=== PATIENT | female | born 1970 | race Caucasian/White ===

== ENCOUNTER → 2019-04-16 | Outpatient (CLI) | payer BC ==
--- NOTE | 2019-04-16 16:38 | RAD ---
DATE: 04/16/2019. EXAM: MAMMO SAIDA DIAG BILAT, BREAST BILATERAL. HISTORY: Palpable focus on the right. COMPARISON: 03/16/2018. This study was interpreted with the benefit of Computerized Aided Detection (CAD). FINDINGS: Breast Density: DENSE The breast parenchyma is dense, which could reduce the sensitivity of mammography. Breast parenchyma level density D.. A skin marker is placed superolaterally on the right. There is no clear underlying mammographic finding. On today's sonography, there are small complicated cysts or fibroadenomas at the site of concern. These measure 5 mm or less and appear benign. There is no suspicious correlate for a palpable focus. On the left, there is a partially obscured nodule medially on the left, best seen on the tomographic images. It appears to be in inferior on the MLO projection. On today's sonography, this may correspond with an anechoic or very hypoechoic nodule at the 8:00 position 4 cm from the nipple measuring 6 x 5 x 3 mm. This may be mild, acute cyst or fibroadenoma. Another similar nodule measures 4 x 2 mm at the 9:00 position 2 cm from the nipple. A few additional smaller nodules are seen elsewhere. A suggested lesion at the 10:00 position does not persist on additional imaging and is not a fracture. BI-RADS CATEGORY: 3 PROBABLY BENIGN FINDING(S)-SHORT INTERVAL FOLLOW-UP SUGGESTED. RECOMMENDED FOLLOW-UP: 6M 6 MONTH FOLLOW-UP. 1. Recommend ongoing clinical follow-up of palpable foci. 2. Recommend 6 month follow-up left mammography of an obscured nodule medially which may correspond with a complicated cyst sonographically. 3. 6 month follow-up bilateral sonography to confirm stability of a few subcentimeter hypoechoic foci that likely represent benign complicated cysts or fibroadenomas. PQRS compliance statement: Patient information was entered into a reminder system with a target due date 10/16/2019 for the next mammogram. Mammography is a sensitive method for finding small breast cancers, but it does not detect them all and is not a substitute for careful clinical examination. A negative mammogram does not negate a clinically suspicious finding and should not result in delay in biopsying a clinically suspicious abnormality. "Our facility is accredited by the [employer] Mammography [employer]."
== END | disposition home or self-care (01) ==
LOC: MAMMO 13:50
PROVIDERS: ATTEND Registered Nurse
DX: N60.21 Fibroadenosis of right breast (principal); N60.22 Fibroadenosis of left breast; N63.24 Unspecified lump in the left breast, lower inner quadrant
CPT/HCPCS: 76641; 77066; G0279; 77062

== ENCOUNTER → 2019-11-06 | Outpatient (CLI) | payer BC ==
--- NOTE | 2019-11-06 15:38 | RAD ---
EXAM: 1. Unilateral digital diagnostic mammography, left. 2. Bilateral breast ultrasound. HISTORY: Six-month follow-up bilateral breast nodules. TECHNIQUE: Unilateral left full field digital images were obtained in CC and MLO projections. Computer-aided detection was applied. Sonography of both breasts was performed at sites of prior concern. COMPARISON: 04/16/2019. COMPOSITION: C. The breasts are heterogeneously dense, which may obscure small masses. FINDINGS: The previously noted site of concern medially is no longer clearly identified. An obscured nodule inferiorly on the tomographic MLO images appears more prominent but is circumscribed and likely corresponds with one of multiple small cysts sonographically. There are no suspicious masses, microcalcifications or architectural distortion. The parenchymal pattern is stable. On today's sonography, on the right, small complicated cysts appear stable and benign. These are seen at the 9:00 position 6 cm from the nipple, at 10:00 position 4 cm from the nipple, and at the 11:00 position 5 cm from the nipple. They measure 3 mm or less. Some of the previously noted cysts have resolved in the interval. On the left at the 9:00 position 2 cm from the nipple, a complicated cyst measures 4 x 3 mm and is slightly increased in size. There is no suspicious solid component. Another at the 9:00 position 4 cm from the nipple measures 4 x 3 mm and has increased but appears benign. This is associated with some tenderness on scanning. There is no clear surrounding inflammatory change sonographically. The patient also indicates some tenderness in the left axilla. Images at that site reveal a normal-appearing 2.7 x 0.8 cm lymph node with thickened cortex and a prominent fatty hilus. BI-RADS CATEGORY 2: Benign. RECOMMENDATION: 1. Resume bilateral screening mammography in 6 months. 2. Recommend ongoing clinical follow-up of left breast and axillary tenderness. If mammography demonstrates dense breast tissue (heterogenously dense or extremely dense, category C or D), which could hide abnormalities, and if other risk factors for breast cancer have been identified, supplemental screening tests that may be suggested by the ordering physician may be of benefit. Dense breast tissue, in and of itself, is a relatively common condition. Therefore, this information is not provided to cause undue concern, but rather to raise awareness and to promote discussion with the referring physician regarding the presence of other risk factors, in addition to dense breast tissue. The results of this mammography examination is provided to the patient and referring physician. The patient should contact their referring physician if any questions or concerns exist regarding this report. PQRS compliance statement - Patient information was entered into a reminder system with a target due date for the next mammogram. "Our facility is accredited by the [employer] Mammography [employer]." Electronically signed by: Giovani Armstrong MD (11/06/2019 3:35 PM) [id number]
== END | disposition home or self-care (01) ==
LOC: MAMMO 13:58
PROVIDERS: ATTEND Family Medicine
DX: Z09 Encounter for follow-up examination after completed treatment for conditions other than malignant neoplasm (principal); N60.01 Solitary cyst of right breast; N60.02 Solitary cyst of left breast
CPT/HCPCS: 76641; 77065; G0279; 77061

== ENCOUNTER → 2021-08-28 | Outpatient (CLI) | payer MEDICAID ==
--- NOTE | 2021-08-28 16:25 | RAD ---
DIAGNOSTIC LEFT BREAST MAMMOGRAM AND LEFT BREAST ULTRASOUND TECHNIQUE: 2-D and 3-D diagnostic left mammogram performed in the standard CC/MLO projections. Graysc christel and color doppler ultrasound of the left breast. INDICATION: Short interval follow-up of probably benign left breast hypoechoic mass COMPARISON: 03/30/2021, 11/06/2019 FINDINGS: Breast Density: There are scattered areas of fibroglandular density. Subtle circumscribed asymmetries redemonstrated in the left outer breast measuring approximately 6 an d 7 mm diameter at approximately 4 and 5 cm from the nipple. No suspicious calcifications or architec tural distortion. Ultrasound demonstrates a 3:00 position 3 cm from the nipple circumscribed 0.5 cm anechoic cyst with well-defined back wall and increased through transmission. In the 3:00 position 4 cm from nipple ther e is a hypoechoic ovoid mass measuring approximately 0.5 x 0.6 x 0.3 cm. No associated vascularity. IMPRESSION: 1. Left outer breast asymmetries, likely representing a benign cyst and a probably benign complicate d cyst or mass such as fibroadenoma. ASSESSMENT: BI-RADS 3: Probably Benign. RECOMMENDATION: Short interval follow-up bilateral diagnostic mammogram and left breast ultrasound Oc tober 2021. The facility will notify the patient of the results via mail. Patient information will be entered int o the mammography reminder system with a target recall date for the next mammogram. A reminder letter will be generated by the facility. Electronically signed by: Bernardo Archuleta MD (08/28/2021 4:23 PM) [id number]
== END ==
LOC: MAMMO 13:03
PROVIDERS: ATTEND Family Medicine
DX: N63.20 Unspecified lump in the left breast, unspecified quadrant (principal); Z12.31 Encounter for screening mammogram for malignant neoplasm of breast
CPT/HCPCS: 76642; 77063; 77067